=== PATIENT | male | born 1985 | race Caucasian/White ===

== ENCOUNTER 2023-04-10 23:55 | Emergency (ER) | payer OTHER ==
[2023-04-11] MEDS ORDERED: HYDROCODONE-AC1 EAC1 PO (03:29)
== END 2023-04-11 03:55 | disposition home or self-care (01) ==
LOC: ED 23:55
DX: S22.32XA Fracture of one rib, left side, initial encounter for closed fracture (principal); I10 Essential (primary) hypertension; W01.0XXA Fall on same level from slipping, tripping and stumbling without subsequent striking against object, initial encounter; Y93.89 Activity, other specified; Y92.89 Other specified places as the place of occurrence of the external cause; Y99.8 Other external cause status